=== PATIENT | male | born 1995 | race Two or more races ===

== ENCOUNTER 2024-07-19 21:14 | Emergency (ER) | payer OTHER ==
[~2024-07-19] VITALS: Ht 177.8 cm; Wt 81.6 kg
[2024-07-19] MEDS ORDERED: CEFTRIAXONE SODIUM 1,000 MG VIAL IM ONE (23:15)
[2024-07-19] MEDS ORDERED: CEFTRIAXONE SODIUM 1,000 MG VIAL ONE (23:46)
== END 2024-07-20 00:17 | disposition home or self-care (01) ==
LOC: ER 21:14
DX: S61.051A Open bite of right thumb without damage to nail, initial encounter (principal); W55.01XA Bitten by cat, initial encounter; Y93.89 Activity, other specified; Y92.89 Other specified places as the place of occurrence of the external cause; Y99.8 Other external cause status